=== PATIENT | female | born 1985 ===

== ENCOUNTER 2021-02-21 10:39 | Inpatient (IN) | payer OTHER ==
[~2021-02-21] VITALS: Ht 165.1 cm; Wt 83.9 kg
[2021-02-26] MEDS ORDERED: ZOFRAN8 MG (06:31)
[2021-02-26] MEDS ORDERED: WELLBUTRIN SR150 MG (06:31)
[2021-02-26] MEDS ORDERED: VISTARIL25 MG (06:31)
[2021-02-26] MEDS ORDERED: PRENATAL + DHA1 EAC1 (06:32)
== END 2021-02-28 12:33 | disposition home or self-care (01) | DRG 807 ==
LOC: LDR 02-26 05:46 → OB/GYN 02-26 05:46
PROVIDERS: ADMIT Specialist; ATTEND Specialist
PROC: 10E0XZZ Delivery of Products of Conception, External Approach (ICD-10-PCS; principal; 2021-02-26)
PROC: 0UQG7ZZ Repair Vagina, Via Natural or Artificial Opening (ICD-10-PCS; 2021-02-26)
PROC: 0W8NXZZ Division of Female Perineum, External Approach (ICD-10-PCS; 2021-02-26)
PROC: 10907ZC Drainage of Amniotic Fluid, Therapeutic from Products of Conception, Via Natural or Artificial Opening (ICD-10-PCS; 2021-02-26)
PROC: 3E033VJ Introduction of Other Hormone into Peripheral Vein, Percutaneous Approach (ICD-10-PCS; 2021-02-26)
PROC: 4A1HXFZ Monitoring of Products of Conception, Cardiac Rhythm, External Approach (ICD-10-PCS; 2021-02-26)
DX: O71.4 Obstetric high vaginal laceration alone (principal); Z37.0 Single live birth; Z3A.39 39 weeks gestation of pregnancy